=== PATIENT | male | born 1960 | race Caucasian/White ===

== ENCOUNTER 2020-10-14 13:16 | Inpatient (IN) | payer OTHER ==
[~2020-10-14] VITALS: Ht 152.4 cm; Wt 77.5 kg
[2020-10-14 13:30] VITALS: BP 104/43
[2020-10-14 13:55] LABS: HEMATOCRIT 35.5 % (42.0-52.0); HEMOGLOBIN 11.7 gm/dL (14.0-18.0); MCH 31.9 pg (26.0-34.0); MCHC 32.8 g/dL (28.0-37.0); MCV 97.1 fL (80.0-100.0); PLATELET COUNT 130 thou/uL (150-400); RBC 3.66 mil/uL (4.50-6.00); RDW 15.9 % (10.5-14.5); WBC 12.7 thou/uL (4.0-11.0)
[2020-10-14 14:04] LABS: ANION GAP 9 mmol/L (7-16); BUN 36 mg/dL (7-18); CALCIUM 9.1 mg/dL (8.5-10.1); CHLORIDE 100 mmol/L (98-107); CO2 23 mmol/L (21-32); CREATININE 2.9 mg/dL (0.7-1.3); GLUCOSE 142 mg/dL (74-106); POTASSIUM 4.3 mmol/L (3.5-5.1); SODIUM 132 mmol/L (136-145)
[2020-10-14 14:15] LABS: ALBUMIN 3.1 g/dL (3.4-5.0); LIPASE 59 U/L (73-393); SGOT 18 U/L (15-37); SGPT 21 U/L (16-63); TOTAL BILIRUBIN 1.6 mg/dL (0.2-1.0); TOTAL PROTEIN 6.9 g/dL (6.4-8.2); TROPONIN-I <0.06 ng/mL (<0.06)
[2020-10-14 14:20] LABS: ABSOLUTE NEUTROPHILS 11.9 thou/uL (1.4-8.2); TEARDROPS OCCASIONAL
[2020-10-14 14:21] LABS: LARGE PLATELETS RARE; POLYCHROMASIA OCCASIONAL
[2020-10-14] MEDS ORDERED: REQUIP 1 MG TABL1 M1 PO (14:31)
[2020-10-14] MEDS ORDERED: FLOMAX0.4 MG PO (14:31)
[2020-10-14] MEDS ORDERED: OXYBUTYNIN 5 MG5 M2 PO (14:31)
[2020-10-14] MEDS ORDERED: XYOSTED50 MG/0.5 SUBQ (14:32)
[2020-10-14] MEDS ORDERED: LUNESTA3 MG PO (14:32)
[2020-10-14] MEDS ORDERED: CYANOCOBALAM IM (14:33)
[2020-10-14] MEDS ORDERED: XYOSTED50 MG/0.5 IM (14:34)
[2020-10-14 14:53] LABS: BE(vivo) -2.5 mmol/L (-2 to +3); HCO3 20.1 mmol/L (22.0-26.0); PCO2 27.7 mmHg (35.0-45.0); PO2 87.8 mmHg (80.0-100.0); pH 7.479 (7.360-7.450); sO2 97.4 % (92.0-98.0)
--- NOTE | 2020-10-14 15:18 | EKG ---
[address] [place] [address] ELECTROCARDIOGRAM REPORT Name: VALERIE LIMA [id number] Admission: 10/14/20 Attend Phys: Discharge: Date of : 60 Report #: [id number] [facility] ED Test Date: 2020-10-14 Test Time: 13:37:59 Pat Name: VALERIE LIMA Department: Room: Gender: M Printing Plate Clerk: SHANDA : 1960 Requested By: Bailey Christine Order Number: [id number] MD: Maximilian Sauceda Measurements Intervals [place] Rate: 172 P: [place]: QRS: 69 QRSD: 83 T: 34 QT: 263 QTc: 445 Interpretive Statements Atrial fibrillation with rapid V-rate Borderline low voltage, extremity leads No previous ECG available for comparison Electronically Signed On 10-14-2020 15:18:11 CDT by Maximilian Sauceda [email or web address] <ELECTRONICALLY SIGNED> By: Maximilian Sauceda MD, [facility] 10/14/20 1518 1337 1337 Maximilian Sauceda MD, FACC /EPI
[2020-10-14 15:36] LABS: URINE BILIRUBIN NEGATIVE (Negative); URINE BLOOD TRACE (Negative); URINE CLARITY CLEAR; URINE COLOR YELLOW; URINE GLUCOSE-RANDOM* NEGATIVE (Negative); URINE KETONES NEGATIVE (Negative); URINE LEUKOCYTES-REFLEX NEGATIVE (Negative); URINE NITRITE-REFLEX NEGATIVE (Negative); URINE PROTEIN (DIPSTICK) NEGATIVE (Negative); URINE SPECIFIC GRAVITY <= 1.005 (1.005-1.035); URINE UROBILINOGEN 0.2 E.U./dl (0.2-1.0)
[2020-10-14 17:51] VITALS: BP 104/53
[2020-10-14 20:28] VITALS: BP 115/58
[2020-10-15 00:09] VITALS: BP 106/61
[2020-10-15 04:24] VITALS: BP 102/54
[2020-10-15 05:22] LABS: ABSOLUTE NEUTROPHILS 8.7 thou/uL (1.4-8.2); BASOPHILS 0.2 % (0.0-2.0); HEMATOCRIT 33.5 % (42.0-52.0); HEMOGLOBIN 10.8 gm/dL (14.0-18.0); LYMPHOCYTES 2.6 % (24.0-44.0); MCH 32.7 pg (26.0-34.0); MCHC 32.3 g/dL (28.0-37.0); MCV 101.4 fL (80.0-100.0); MONOCYTES 2.9 % (1.0-8.0); PLATELET COUNT 108 thou/uL (150-400); POLYS 94.3 % (36.0-66.0); RDW 16.1 % (10.5-14.5); WBC 9.2 thou/uL (4.0-11.0)
[2020-10-15 05:25] LABS: CALCIUM 8.2 mg/dL (8.5-10.1); CREATININE 2.1 mg/dL (0.7-1.3); POTASSIUM 4.4 mmol/L (3.5-5.1)
--- NOTE | 2020-10-15 07:06 | EKG ---
[address] [address] ELECTROCARDIOGRAM REPORT Name: VALERIE LIMA Room #: 216-P ADM IN M.R.#: [id number] Admission: 10/14/20 Attend Phys: Félix Gonzalez MD Discharge: Date of : 60 Report #: [id number] [facility] ED Test Date: 2020-10-14 Test Time: 13:47:26 Pat Name: VALERIE LIMA Department: Room: 216 Gender: M Pediatric Clinical Dietician: SHANDA : 1960 Requested By: Félix Gonzalez Order Number: [id number] MD: Maximilian Sauceda Measurements Intervals [place] Rate: 88 P: 47 DC: 152 QRS: 7 QRSD: 72 T: -8 QT: 356 QTc: 431 Interpretive Statements Sinus rhythm Probable left atrial enlargement Inferior infarct, age indeterminate Compared to ECG 10/14/2020 13:37:59 Myocardial infarct finding now present Atrial fibrillation no longer present Electronically Signed On 10-15-2020 7:06:01 CDT by Maximilian Sauceda [email or web address] <ELECTRONICALLY SIGNED> By: Maximilian Sauceda MD, [facility] 10/15/20705 46 46 Maximilian Sauceda MD, [facility] /EPI
[2020-10-15 07:45] VITALS: BP 114/59
--- NOTE | 2020-10-15 09:17 | 2DMMODE ---
[facility] [place] [address] 2 D/M-MODE ECHOCARDIOGRAM Name: VALERIE LIMA Room #: 216-P ADM IN M.R.#: [id number] Admission: 10/14/20 Attend Phys: Félix Gonzalez MD Discharge: Date of : 60 Report #: [id number] THIS REPORT FOR: cc: Ruben Mckee Alan Z. DO Park, Jin S. MD ~ APPROVED REPORT Study performed: 10/15/2020 07:35:39 EXAM: Comprehensive 2D, Doppler, and color-flow Echocardiogram Patient Location: Bedside Room #: 216 Status: routine BSA: 1.74 HR: 100 bpm BP: 102/54 mmHg Rhythm: Atrial Fibrillation Other Information Study Quality: Adequate Technically limited study due to Straining due to kindney stones. Indications Atrial Fibrillation 2D Dimensions RVDd: 36.36 mm IVSd: 9.29 (7-11mm) LVOT Diam: 20.79 (18-24mm) LVDd: 52.90 mm PWd: 10.02 (7-11mm) LVDs: 28.25 (25-40mm) Left Atrium: 36.76 (27-40mm) Aortic Root: 30.90 mm Volumes Left Atrial Volume (Systole) Single Plane 4CH: 46.18 mL Single Plane 2CH: 85.68 mL LA ESV Index: 40.00 mL/m2 Aortic Valve AoV Peak Robin.: 1.42 m/s AO Peak Gr.: 8.07 mmHg LVOT Max P.57 mmHg [facility] [address] [place] [address] 2 D/M-MODE ECHOCARDIOGRAM Name: VALERIE LIMA Room #: 216-P ADM IN .R.#: [id number] Admission: 10/14/20 Attend Phys: Félix Gonzalez MD Discharge: Date of : 60 Report #: [id number] LVOT Max V: 1.18 m/s FROYLAN Vmax: 2.82 cm2 Pulmonary Valve PV Peak Robin.: 0.96 m/s PV Peak Gr.: 3.72 mmHg Tricuspid Valve TR Peak Robin.: 2.02 m/s RAP Estimate: 10.00 mmHg TR Peak Gr.: 16.31 mmHg PA Pressure: 26.00 mmHg Left Ventricle The left ventricle is normal size. There is normal LV segmental wall motion. There is normal left ventricular wall thickness. The left ventricular systolic function is normal. LVEF is 55%. This study is not technically sufficient to allow evaluation of the LV diastolic function due to atrial fibrillation. Right Ventricle The right ventricle is normal size. The right ventricular systolic function is normal. Atria Left atrium is mildly dilated. The right atrium size is normal. Aortic Valve The aortic valve is normal in structure. No aortic regurgitation is present. There is no aortic valvular stenosis. Mitral Valve The mitral valve is normal in structure. Mild mitral regurgitation. No evidence of mitral valve stenosis. Tricuspid Valve The tricuspid valve is normal in structure. Trace tricuspid regurgitation. Estimated PAP is 25-30mmHg. Pulmonic Valve Pulmonic valve is not well visualized. There is no pulmonic valvular regurgitation. Great Vessels The aortic root is normal in size. Ascending aorta is not well visualized. IVC is dilated and partially collapses with inspiration. [facility] [address] [place] [address] 2 D/M-MODE ECHOCARDIOGRAM Name: VALERIE LIMA Room #: 216-P [facility] IN ..#: [id number] Admission: 10/14/20 Attend Phys: Félix Gonzalez MD Discharge: Date of : 60 Report #: [id number] Pericardium There is no pericardial effusion. <Conclusion> The left ventricle is normal size. There is normal left ventricular wall thickness. The left ventricular systolic function is normal. The right ventricle is normal size. Left atrium is mildly dilated. The aortic valve is normal in structure. Mild mitral regurgitation. Trace tricuspid regurgitation. Estimated PAP is 25-30mmHg. <ELECTRONICALLY SIGNED> By: Perry Way MD 10/15/[address] MD /INF
--- NOTE | 2020-10-15 11:00 | NUR ---
in am, afib with rvr up to 130's intermittently. Cardiology V BELT BUILDER and Drum Sander Setter present, digoxin and metoprolol xl administered per order. cardizem increased to 15 mg/hr with rate eventually controlled. additionally pt having pain that he was describing as his urinary stent "has dislodged and is starting to come out". administered dilaudid for discomfort/pain with significant improvement with discomfort down to level 4/10. he stated, "the pain pills I had just don't work for me. I had the same medication when I had dental work, it didn't work then and it doesn't work now. the iv pain med worked".
[2020-10-15 12:05] VITALS: BP 100/59
--- NOTE | 2020-10-15 15:39 | NUR ---
ADV. DIR. CONSULT [id number] WAS COMPLETED BY THIS BREWERY CELLAR WORKER. PT. APPOINTED 1 PERSON. COPY PLACED IN CHART.
[2020-10-15 16:15] VITALS: BP 104/63
--- NOTE | 2020-10-15 16:57 | NUR ---
Chart reviewed and case discussed with the care team. Pt admited with afib/lt kidney issues/sepsis. He was working and indep prior to admission and lives with his . He has health insurance through his employer and his pcp is Dr. Ruben Mckee. He is on a cardizem gtt, o2 2lnc, ivf/iv atb. Spiritual care completed an AD/DPOA document with his today. No cm interventions for dc planning anticipated at this time. Will follow along should dc needs arise.
--- NOTE | 2020-10-15 17:56 | NUR ---
resting intermittently this afternoon. no additional pain med needed at this time.
[2020-10-15 20:15] VITALS: BP 101/61
--- NOTE | 2020-10-16 02:39 | NUR ---
wearing the cpap tonight. he got up and had a large BM this am. denies pain that would nessicitate medication. continues on the cardizem gtt for the new onset afib for rate control. careplan reviewed.
[2020-10-16 03:52] LABS: HEMATOCRIT 32.5 % (42.0-52.0); HEMOGLOBIN 10.7 gm/dL (14.0-18.0); MCH 32.2 pg (26.0-34.0); MCV 97.8 fL (80.0-100.0); RBC 3.32 mil/uL (4.50-6.00); WBC 7.4 thou/uL (4.0-11.0)
[2020-10-16 03:59] LABS: CREATININE 1.3 mg/dL (0.7-1.3); POTASSIUM 4.2 mmol/L (3.5-5.1)
[2020-10-16 04:00] VITALS: BP 139/68
[2020-10-16 07:55] VITALS: BP 100/74
--- NOTE | 2020-10-16 09:30 | NUR ---
ASSUMMED CARE OF THIS PATIENT AT 0700 FROM THE NIGHT NURSE, BARON QUISPE. PAIN ISSUE ADDRESSED WITH RELIEF. PATIENT UP TO THE RESTROOM FOR BM AND HEART RATE UP TO 160, AFIB WITH ACTIVITY. VENTRICULAR RESPONSE IN THE 90'S ONCE BACK IN BED AND RESTING. WILL CONTINUE TO MONITOR.
[2020-10-16 11:30] VITALS: BP 115/71
[2020-10-16 15:45] VITALS: BP 122/56
--- NOTE | 2020-10-16 18:08 | NUR ---
PATIENT IS PROGRESSING TOWARDS OUTCOME GOALS. UP TO SHOWER WITH HEART RATE STABLE IN THE 90'S, REMAINS IN A FIB. CARDIZEM DRIP WEANED OFF. BLOOD CULTURES REDRAWN AND VANCOMYCIN ADDED. DR ALCALA IN TO SEE PATIENT
[2020-10-16 20:14] VITALS: BP 121/88
[2020-10-17 03:28] LABS: HEMATOCRIT 37.4 % (42.0-52.0); HEMOGLOBIN 11.8 gm/dL (14.0-18.0); MCH 30.9 pg (26.0-34.0); MCHC 31.5 g/dL (28.0-37.0); MCV 98.2 fL (80.0-100.0); RBC 3.81 mil/uL (4.50-6.00); WBC 5.8 thou/uL (4.0-11.0)
[2020-10-17 03:39] LABS: CALCIUM 8.2 mg/dL (8.5-10.1); CREATININE 1.3 mg/dL (0.7-1.3); POTASSIUM 4.1 mmol/L (3.5-5.1)
[2020-10-17 04:30] VITALS: BP 130/78
[2020-10-17 04:45] VITALS: BP 130/70
--- NOTE | 2020-10-17 05:26 | HC ---
[facility] [place] [address] CONSULTATION Name: VALERIE LIMA Room #: 216-P ADM IN M.R.#: [id number] Admission: 10/14/20 Attend Phys: Félix Gonzalez MD Discharge: Date of : 60 Report #: [id number] THIS REPORT FOR: cc: Ruben Mckee Alan Z. DO Barry, Joseph W. MD ~ DOC #: [id number] Jesus Alberto Barrett MD DATE OF SERVICE: 10/16/2020 INFECTIOUS DISEASE CONSULTATION ATTENDING PHYSICIAN: Dr. Gonzalez. REASON FOR EVALUATION: Staphylococcus aureus septicemia, also has obstructive uropathy. HISTORY OF PRESENT ILLNESS: Chart reviewed, patient examined. The patient is a 60-year-old with history of prostate cancer who developed illness over the course of last several days, had mid abdominal pain that was complicated by loss of appetite and some mild dyspnea as well. He was evaluated by his primary care on the day of admission. Apparently he was diagnosed with UTI. I do not have the available records, presumably a urinalysis, as he presented through the emergency room. Chest x-ray was otherwise unremarkable. Influenza antigen, coronavirus testing were negative. Lactic acid 1.8. Did have elevated creatinine of 2.9, repeat was 1.3. CT abdomen and pelvis showed obstructive uropathy with 6 mm calculus, distal left ureter with marked left-sided hydronephrosis. He did undergo operative evaluation and stent placement. At the time of admission, blood cultures were collected now with 2/2 growth of Staph aureus. Clinically, has improved, overall significantly less pain and discomfort. Denies any pulmonary-related complaints. Appetite is improved. He has not had recorded temperature elevations, had experienced some atrial tachydysrhythmias, those are better controlled, otherwise the pulse still around 100. He is lucid. ALLERGIES: None known. MEDICATIONS: Include metoprolol, rivaroxaban, ropinirole, aspirin, trazodone, diltiazem, Zosyn, hydromorphone, one-time dose of vancomycin. PAST MEDICAL HISTORY: As described above, prostate cancer, restless leg syndrome. PAST SURGICAL HISTORY: Previous hernia repair and appendectomy as an . SOCIAL HISTORY: Nonsmoker, no ethanol, no illicit drug use. [address] [address] CONSULTATION Name: VALERIE LIMA Room #: 216-P [facility] IN M.R.#: [id number] Admission: 10/14/20 Attend Phys: Félix Gonzalez MD Discharge: Date of : 60 Report #: [id number] FAMILY HISTORY: Noncontributory. REVIEW OF SYSTEMS: Otherwise, unremarkable 10-point review of systems. PHYSICAL EXAMINATION: GENERAL: He is alert, cooperative, appropriate, mild distress. VITAL SIGNS: Temperature 98.6, pulse 98, respirations 18, blood pressure is 122/56. SKIN: Warm, dry, no rashes. HEENT: Normocephalic. Extraocular muscles intact. NECK: Supple. He is not requiring supplemental oxygen at this point. LUNGS: Otherwise clear breath sounds. HEART: Borderline tachycardic, irregular. I do not appreciate a murmur. ABDOMEN: Somewhat tender in the right side and flank to palpation. EXTREMITIES: There is no overt peritoneal sign. GENITOURINARY AND RECTAL: Deferred. LABORATORY DATA: Blood cultures described above Staphylococcus aureus. Urine culture, no growth thus far. Electrolytes: Sodium 139, potassium 4.2, chloride 108, bicarbonate 24, anion gap of 7, BUN and creatinine 25 and 1.3, glucose of 138. Estimated GFR of 56. CBC: White count of 7.4, H and H 10.7, hematocrit 32.5, platelets of 134. Echo showed no valvular vegetations. This was transthoracic. CT abdomen and pelvis as described above. A lower extremity venous Dopplers, no evidence of DVT. CT of the chest apparently has some underlying lung disease, nothing acute. No masses. ASSESSMENT: 1. Staphylococcus aureus septicemia of unclear etiology. 2. Obstructive uropathy with evidence of complicated genitourinary tract infection, which is how he presented clinically. 3. Prostate cancer. PLAN: We will continue combination therapy at this point including vancomycin, pending susceptibility results of the Staphylococcus aureus. Blood cultures have been repeated. We will await those results, see how he does clinically. He may need to have a transesophageal echo. At this point, I see no evidence of distal site of focal pyogenic infection. We will add incentive spirometry. MD JOSE ANGEL Castle/QUITA [address] [address] CONSULTATION Name: VALERIE LIMA Room #: 216-P ADM IN M.R.#: [id number] Admission: 10/14/20 Attend Phys: Félix Gonzalez MD Discharge: Date of : 60 Report #: [id number] <ELECTRONICALLY SIGNED> By: Jesus Alberto Barrett MD 10/17/20 0526 1546 0202 Jesus Alberto Barrett MD /nt
[2020-10-17 11:20] VITALS: BP 88/56
[2020-10-17 15:08] VITALS: BP 100/76
[2020-10-17 19:52] VITALS: BP 117/67
--- NOTE | 2020-10-18 04:25 | NUR ---
PT IS ALERT AND ORIENTED X4. LUNGS ARE CLEAR ON ROOM AIR. AFIB ON THE ENGINE HOSTLER. BEDREST. CHANGED SHEETS LAST NIGHT AND HE CLEANED UP A BIT AT BEDTIME AND SLEEPING PILL GIVEN FOR SLEEP PER NURSING. VOIDS PER URINAL. IN ISOLATION FOR MRSA OF URINE. DENIES ANY PAIN ISSUES. CALL LIGHT WITHIN REACH IF NEEDS ASISSTANCE PER NURSING
[2020-10-18 04:59] VITALS: BP 117/83
[2020-10-18 07:45] VITALS: BP 113/84
--- NOTE | 2020-10-18 11:20 | NUR ---
ASSUMED PATIENT CARE AT 0700. PATIENT IN AFIB WITH RATE 130-160. DR. CANO NOTIFIED, INCREASED PO METOPROLOL. AT 0800 PATIENT HAD [address] BE[address] RUN OF [address]. [address] CANO NOTIFIED AND PO AMIO ORDERED.
[2020-10-18 11:35] VITALS: BP 95/53
[2020-10-18 16:00] VITALS: BP 92/70
[2020-10-18 19:49] VITALS: BP 142/80
[2020-10-19] VITALS (9 sets, daily range): BP systolic 92–132; BP diastolic 57–71
--- NOTE | 2020-10-19 07:46 | NUR ---
DENIES CHEST PAIN ON ASSESSMENT.UP WITH STANDBY ASSIST TO THE BATHROOM.BM X 1.DARK RED TINGED URINE OUTPUT NOTED, ADMINISTRATIVE SUPPORT TECHNICIAN IS AWARE.MONITOR SHOWS AFIB.POC CONTINUED.
--- NOTE | 2020-10-19 10:31 | EKG ---
[address] [address] ELECTROCARDIOGRAM REPORT Name: VALERIE LIMA Room #: 216-P ADM IN M.R.#: [id number] Admission: 10/14/20 Attend Phys: Félix Gonzalez MD Discharge: Date of : 60 Report #: [id number] [facility] Test Date: 2020-10-18 Test Time: 18:37:54 Pat Name: VALERIE LIMA Department: Room: 216 P Gender: M Hospital Educator: UNKNOWN : 1960 Requested By: Félix Gonzalez Order Number: [id number] MD: Maximilian Sauceda Measurements Intervals [place] Rate: 86 P: [place]: QRS: 62 QRSD: 96 T: -39 QT: 369 QTc: 442 Interpretive Statements Atrial fibrillation Nonspecific T abnormalities, inferior leads Borderline prolonged QT interval Artifact in lead(s) I,III,aVR,aVL Compared to ECG 10/14/2020 13:47:26 T-wave abnormality now present Sinus rhythm no longer present Myocardial infarct finding no longer present Electronically Signed On 10-19-2020 10:31:18 CDT by Maximilian Sauceda [email or web address] <ELECTRONICALLY SIGNED> By: Maximilian Sauceda MD, [facility] 10/19/20 1031 1837 1837 Maximilian Sauceda MD, [facility] /EPI
[2020-10-19 12:20] LABS: CALCIUM 8.3 mg/dL (8.5-10.1); CREATININE 1.3 mg/dL (0.7-1.3); POTASSIUM 3.9 mmol/L (3.5-5.1)
--- NOTE | 2020-10-19 17:00 | NUR ---
PT CARE ASSUMED AT 0700. ASSESSMENTS CHARTED. MEDICATIONS CHARTED. RAC IV, RAC IV. ATRIAL FIB/ATRIAL FLUTTER. CPAP AT NOC. MRSA ISOLATION. NPO AFTER 0000. UP AD JOSÉ MIGUEL. TRANSESOPHAGEAL ECHO CONSENT SIGNED.
[2020-10-20 04:11] VITALS: BP 111/70
[2020-10-20 05:52] LABS: HEMATOCRIT 34.7 % (42.0-52.0); HEMOGLOBIN 11.2 gm/dL (14.0-18.0); MCH 31.3 pg (26.0-34.0); MCHC 32.4 g/dL (28.0-37.0); MCV 96.5 fL (80.0-100.0); RBC 3.59 mil/uL (4.50-6.00); RDW 16.6 % (10.5-14.5); WBC 7.7 thou/uL (4.0-11.0)
[2020-10-20 05:56] LABS: CREATININE 1.2 mg/dL (0.7-1.3); POTASSIUM 3.8 mmol/L (3.5-5.1)
--- NOTE | 2020-10-20 08:34 | TEE ---
[facility] [place] [address] TRANSESOPHAGEAL ECHOCARDIOGRAM Name: VALERIE LIMA Room #: 216-P ADM IN M.R.#: [id number] Admission: 10/14/20 Attend Phys: Félix Gonzalez MD Discharge: Date of : 60 Report #: [id number] THIS REPORT FOR: cc: Ruben Mckee Alan Z. DO Santiago, Patrick MD [facility] ~ APPROVED REPORT Study performed: 10/20/2020 08:00:35 EXAM: Transesophageal Echocardiogram Patient Location: Room #: 216 Status: routine BSA: 1.95 HR: 180 bpm BP: 116/74 mmHg Rhythm: Atrial Fibrillation Other Information Study Quality: Adequate Indications Atrial Fibrillation Cardioversion. Procedure After obtaining informed consent, patient underwent transesophageal echo in the [employer]. Type of Sedation : Conscious Sedation Sedation was administered by JOSE ENRIQUE Tellez. Sedation start time: 804 Case end Time: 811 Sedation was achieved intravenously with: Versed (6) Fentanyl (100) Transesophageal probe was inserted and advanced into esophagus without difficulty by Maximilian Sauceda MD. The ROB was performed without complications. Synchronized Cardioversion attempted: Successful Synchronized Cardioversion acheived with 120 Joules after 1 attempt(s). Rhythm following Synchronized Cardioversion: Normal Sinus Rhythm Throughout the procedure, the blood pressure, pulse oximetry, cardiac rhythm, and rate were monitored. The patient tolerated the procedure without adverse effects. Recovery [facility] [place] [address] TRANSESOPHAGEAL ECHOCARDIOGRAM Name: VALERIE LIMA Room #: 216-P ADM IN M.R.#: [id number] Admission: 10/14/20 Attend Phys: Félix Gonzalez MD Discharge: Date of : 60 Report #: [id number] from conscious sedation was uneventful and vital signs were stable. Left Ventricle The left ventricle is normal size. There is normal LV segmental wall motion. There is normal left ventricular wall thickness. Left ventricular systolic function is normal. LVEF is 55%. Right Ventricle The right ventricle is normal size. The right ventricular systolic function is normal. Atria Left atrium is mildly dilated. No thrombus is visualized in the left atrium or appendage. The right atrium size is normal. Aortic Valve The aortic valve was not visualized. Mitral Valve The mitral valve is normal in structure. Moderate mitral regurgitation. Tricuspid Valve Tricuspid valve was not visualized. Pericardium There is no pericardial effusion. <Conclusion> Consent was obtained Timeout performed Esophageal probe was advanced without difficulty. Baseline atrial fibrillation with a rapid ventricular rate as high as 190 bpm Left atrium mildly dilated Left atrial appendage, small no obvious clot detected Ejection fraction of 55% Moderate/central mitral valve insufficiency No pericardial effusion Due to the rapid heart rate patient was successfully cardioverted To sinus rhythm after 120 J in a biphasic mode [facility] [place] [address] TRANSESOPHAGEAL ECHOCARDIOGRAM Name: VALERIE LIMA Room #: 216-P ADM IN M.R.#: [id number] Admission: 10/14/20 Attend Phys: Félix Gonzaelz MD Discharge: Date of : 60 Report #: [id number] Patient tolerated procedure well Twelve-lead ECG pending <ELECTRONICALLY SIGNED> By: Maximilian Sauceda MD, FACC 10/20/2034 3 3 Maximilian Sauceda MD, FACC /INF
--- NOTE | 2020-10-20 08:47 | EKG ---
[address] [place] [address] ELECTROCARDIOGRAM REPORT Name: VALERIE LIMA Room #: 216-P ADM IN M.R.#: [id number] Admission: 10/14/20 Attend Phys: Félix Gonzalez MD Discharge: Date of : 60 Report #: [id number] [facility] Test Date: 2020-10-20 Test Time: 08:33:35 Pat Name: VALERIE LIMA Department: Room: 216 P Gender: M Customer Retention Specialist: PONCE : 1960 Requested By: Maximilian Sauceda Order Number: [id number] MD: Maximilian Sauceda Measurements Intervals [place] Rate: 82 P: 80 MD: 177 QRS: 58 QRSD: 90 T: 29 QT: 361 QTc: 422 Interpretive Statements Sinus rhythm Borderline low voltage, extremity leads Abnormal R-wave progression, late transition Non specific ST-T changes Compared to ECG 10/18/2020 18:37:54 Atrial fibrillation no longer present Electronically Signed On 10-20-2020 8:47:00 CDT by Maximilian Sauceda [email or web address] <ELECTRONICALLY SIGNED> By: Maximilian Sauceda MD, [facility] 10/20/20 0847 2 Maximilian Sauceda MD, [facility] /EPI
[2020-10-20 11:00] VITALS: BP 102/56
[2020-10-20 11:45] VITALS: BP 102/56
[2020-10-20] MEDS ORDERED: PACERONE 200 M200 M1 PO (11:51)
[2020-10-20] MEDS ORDERED: METOPROLOL SUCC50 MG PO (11:51)
[2020-10-20] MEDS ORDERED: XARELTO20 MG PO (11:51)
[2020-10-20] MEDS ORDERED: AMOX TR-K CLV1 EAC4 PO (12:49)
[2020-10-20] MEDS ORDERED: LINEZOLID600 MG PO (12:49)
--- NOTE | 2020-10-20 13:57 | NUR ---
PT CARE ASSUMED AT 0700. ASSESSMENTS CHARTED. MEDICATIONS CHARTED. RFA IV. SINUS RHYTHM. CPAP AT NOC W/ 3LPM. DK AZAEL URINE. PT WENT FOR A TRANSESOPHAGEAL ECHO/CARDIOVERSION AT 0745, RETURNED AT 0920, SUCCESSFULLY CONVERTED FROM AFIB TO SINUS RHYTHM. LVEF 55%. EKG PERFORMED DURING PROCEDURE. PT DISCHARGED TO HOME. DISCHARGE PAPERWORK SIGNED. TELEMETRY D/C'D. IV D/C'D.
[2020-10-20 14:02] VITALS: BP 111/70
--- NOTE | 2020-10-20 14:48 | NUR ---
patient weaned off oxygen.Spoke with patient independent with adls anticipate no dc needs at dc.
== END 2020-10-20 14:34 | disposition home or self-care (01) | DRG 853 ==
LOC: ER 13:16 → 2N 16:16 → EROBS 16:16 → 2N 20:06
PROVIDERS: Nurse Practitioner; Physician Assistant; Specialist; ADMIT Hospitalist; ATTEND Hospitalist
PROC: BT1F1ZZ Fluoroscopy of Left Kidney, Ureter and Bladder using Low Osmolar Contrast (ICD-10-PCS; principal; 2020-10-14)
PROC: 0T778DZ Dilation of Left Ureter with Intraluminal Device, Via Natural or Artificial Opening Endoscopic (ICD-10-PCS; principal; 2020-10-14)
PROC: 5A09357 Assistance with Respiratory Ventilation, Less than 24 Consecutive Hours, Continuous Positive Airway Pressure (ICD-10-PCS; 2020-10-15)
PROC: 5A09457 Assistance with Respiratory Ventilation, 24-96 Consecutive Hours, Continuous Positive Airway Pressure (ICD-10-PCS; 2020-10-16)
PROC: 5A09357 Assistance with Respiratory Ventilation, Less than 24 Consecutive Hours, Continuous Positive Airway Pressure (ICD-10-PCS; 2020-10-20)
PROC: B24BZZ4 Ultrasonography of Heart with Aorta, Transesophageal (ICD-10-PCS; 2020-10-20)
DX: A41.02 Sepsis due to Methicillin resistant Staphylococcus aureus (principal); N17.0 Acute kidney failure with tubular necrosis; N13.2 Hydronephrosis with renal and ureteral calculous obstruction; I48.20 Chronic atrial fibrillation, unspecified; G25.81 Restless legs syndrome; C61 Malignant neoplasm of prostate; I08.1 Rheumatic disorders of both mitral and tricuspid valves; Z20.822 Contact with and (suspected) exposure to COVID-19; Z79.899 Other long term (current) drug therapy; Z90.49 Acquired absence of other specified parts of digestive tract; Z87.891 Personal history of nicotine dependence
CPT/HCPCS: 10081; 50010; 50101; 50751; 51620; 51767; 56815; 57160; 58565; 62110; 62900; 70005

== ENCOUNTER 2020-11-05 10:31 | Emergency (ER) | payer OTHER ==
[~2020-11-05] VITALS: Ht 177.8 cm; Wt 83.5 kg
--- NOTE | ~2020-11-05 | EMS ---
[address] [address] EMS Patient Care Report Name: VALERIE LIMA Room #: REG BEN Dinero#: [id number] Admission: 11/05/20 Attend Phys: Discharge: Date of : 60 Report #: [id number] THIS REPORT FOR: //name// Report Transmitted: 11/05/2020 11:52 EMS Care Summary [facility] Incident [id number] @ 11/05/2020 09:44 Incident Location [address] [place] [address] Patient SARAH LIMA Male, 60 Years 1960 Patient Address [address] [place] [address] Patient History Atrial Fibrillation,Kidney Stone, Patient Allergies No known allergies, Patient Medications Amoxicillin, Tamsulosin, Xarelto, Chief Complaint light headed and dizzy Disposition Transported No Lights/[place] Dispatch Reason Sick Person Transported To [facility] Narrative Arrive to find the pt sitting in a chair in a warehouse being assessed by LFD. Pt reports that he stood up from his chair and got very dizzy and light headed and knew he had to sit down. Pt says 911 was then called. Pt says that on Monday he had a surgery to remove kidney stones and they kept him over night [address] [address] EMS Patient Care Report Name: VALERIE LIMA Room #: REG BEN Dinero#: [id number] Admission: 11/05/20 Attend Phys: Discharge: Date of : 60 Report #: [id number] due to a low hemoglobin count and he also reports that he had a blood transfusion yesterday. Pt says that while sitting he is feeling much more normal. VS, ECG and 12 lead done by LFD. Orthostatic BP taken and pt reports that as soon as he stood up he is light headed and dizzy. Pt denies any loss of consc., SOB, CP or any other problems. Pt is helped to a stair chair and taken to the ambulance and then secured to the cot. VS and ECG monitored, IV started and fluid bolus given. Biocom to [employer] with no orders and tx without incident. Pt is saying he feels better. Pt taken to ER room 8 and report to RN at bedside and care transferred. Initial Vitals @10:16P: 79,BP: 108/70,SpO2: 98, @PTAP: 106,R: 25,SpO2: 97,AK Suspected: false @PTAP: 90,R: 18,BP: 94/65,Pain: 0/10,GCS: 15,SpO2: 99,Revised Trauma: 12, @PTAP: 84,R: 18,BP: 107/58,Pain: 0/10,GCS: 15,Glucose: 147,SpO2: 97,Revised Trauma: 12,AK Suspected: false @10:23P: 104,R: 18,BP: 105/66,Pain: 0/10,GCS: 15,SpO2: 96,Revised Trauma: 12,AK Suspected: false @PTAP: 86,R: 26,BP: 117/76,Pain: 0/10,GCS: 15,Temp: 98.2F,SpO2: 96,Revised Trauma: 12, Assessments @10:24MENTAL:Person Oriented,Time Oriented,Place Oriented,Event Oriented,SKIN:HEENT:Head/Face: No Abnormalities,LUNG SOUNDS:General: No Abnormalities,ABDOMEN:General: No Abnormalities,PELVIS//GI:EXTREMITIES:Left Arm: No Abnormalities,Right Arm: No Abnormalities,Left Leg: No Abnormalities,Right Leg: No Abnormalities,PULSE:NEURO:No Abnormalities, Impression Orthostatic Hypotension Procedures @MFF06-Epqa ECGResponse: UnchangedSucceeded@10:17Saline Lock 0cc (18 ga) Site: Antecubital-LeftResponse: UnchangedFailed@10:18Saline Lock 400cc (20 ga) Site: Forearm-RightResponse: ImprovedSucceeded Timeline STEAMFITTER,12-Lead ECG,Response: UnchangedSucceeded, STEAMFITTER,BP: / M,PULSE: 106,RR: 25 R,SPO2: 97 Ox,ETCO2: ,BG: ,PAIN: ,GCS: , STEAMFITTER,BP: 94/65 M,PULSE: 90,RR: 18 R,SPO2: 99 Ox,ETCO2: ,BG: ,PAIN: 0,GCS: 15, STEAMFITTER,BP: 107/58 M,PULSE: 84,RR: 18 R,SPO2: 97 Ox,ETCO2: ,B,PAIN: 0,GCS: 15, STEAMFITTER,BP: 117/76 M,PULSE: 86,RR: 26 R,SPO2: 96 Ox,ETCO2: ,BG: ,PAIN: 0,GCS: 15, 09:42,Call Received 09:42,Psap Call [address] [address] EMS Patient Care Report Name: VALERIE LIMA Room #: MELLO Salcido.#: [id number] Admission: 11/05/20 Attend Phys: Discharge: Date of : 60 Report #: [id number] 09:44,Dispatched 09:44,En Route 09:55,On Scene 09:57,At Patient 10:12,Depart Scene 10:16,BP: 108/70 M,PULSE: 79,RR: R,SPO2: 98 Ox,ETCO2: ,BG: ,PAIN: ,GCS: , 10:17,Saline Lock 0cc 18 ga Site: Antecubital-Left,Response: UnchangedFailed, 10:18,Saline Lock 400cc 20 ga Site: Forearm-Right,Response: ImprovedSucceeded, 10:23,BP: 105/66 M,PULSE: 104,RR: 18 R,SPO2: 96 Ox,ETCO2: ,BG: ,PAIN: 0,GCS: 15, 10:26,At Destination 10:45,Call Closed Disclaimer v1.1 Copyright 2020 [employer] This EMS Care Summary contains data elements from the applicable legal record (which may be displayed differently). It is designed to provide pertinent information for the following purposes: continuity of care, clinical quality, and state data reporting. The complete legal record is available to ED staff and administrators of the receiving hospital in [facility]'s Patient Tracker. All data is provided "as is."
[~2020-11-05 10:31] MED LIST: AMOX TR-K CLV1 EAC4 PO; CYANOCOBALAM IM; FLOMAX0.4 MG PO; LINEZOLID600 MG PO; LUNESTA3 MG PO; METOPROLOL SUCC50 MG PO; OXYBUTYNIN 5 MG5 M2 PO; PACERONE 200 M200 M1 PO; REQUIP 1 MG TABL1 M1 PO; XARELTO20 MG PO; XYOSTED50 MG/0.5 IM; XYOSTED50 MG/0.5 SUBQ
[2020-11-05 10:57] LABS: ABSOLUTE NEUTROPHILS 3.6 thou/uL (1.4-8.2); BASOPHILS 0.7 % (0.0-2.0); EOSINOPHILS 1.1 % (0.0-3.0); HEMATOCRIT 26.1 % (42.0-52.0); HEMOGLOBIN 8.7 gm/dL (14.0-18.0); LYMPHOCYTES 12.6 % (24.0-44.0); MCH 30.3 pg (26.0-34.0); MCHC 33.2 g/dL (28.0-37.0); MCV 91.3 fL (80.0-100.0); MONOCYTES 7.3 % (1.0-8.0); PLATELET COUNT 117 thou/uL (150-400); POLYS 78.3 % (36.0-66.0); RBC 2.86 mil/uL (4.50-6.00); RDW 16.5 % (10.5-14.5); WBC 4.6 thou/uL (4.0-11.0)
[2020-11-05 11:05] LABS: ANION GAP 10 mmol/L (7-16); BUN 16 mg/dL (7-18); CALCIUM 8.3 mg/dL (8.5-10.1); CHLORIDE 106 mmol/L (98-107); CO2 25 mmol/L (21-32); CREATININE 1.3 mg/dL (0.7-1.3); GLUCOSE 107 mg/dL (74-106); POTASSIUM 3.5 mmol/L (3.5-5.1); SODIUM 141 mmol/L (136-145)
[2020-11-05 11:16] LABS: ALBUMIN 2.6 g/dL (3.4-5.0); SGOT 8 U/L (15-37); SGPT 22 U/L (30-65); TOTAL BILIRUBIN 0.5 mg/dL (0.2-1.0); TROPONIN-I <0.06 ng/mL (<0.06)
[2020-11-05 11:43] LABS: URINE BILIRUBIN NEGATIVE (Negative); URINE BLOOD 3+ (Negative); URINE CLARITY CLOUDY; URINE COLOR RED; URINE GLUCOSE-RANDOM* NEGATIVE (Negative); URINE KETONES NEGATIVE (Negative); URINE NITRITE-REFLEX NEGATIVE (Negative); URINE PROTEIN (DIPSTICK) 2+ (Negative); URINE UROBILINOGEN 0.2 E.U./dl (0.2-1.0)
[2020-11-05 11:44] LABS: URINE LEUKOCYTES-REFLEX 1+ (Negative)
[2020-11-05 11:48] LABS: CASTS None Seen /LPF (None Seen); CRYSTALS None Seen /LPF (None Seen); SQUAMOUS None Seen /LPF (0-3); URINE RBC >20 Many /HPF (NONE SEEN); URINE WBC-REFLEX 6-15 Few /HPF (0-5)
[2020-11-05 11:49] LABS: BACTERIA-REFLEX 1-9 Few /HPF (None Seen)
--- NOTE | 2020-11-05 12:27 | EKG ---
[place] [address] [facility] [place] [address] ELECTROCARDIOGRAM REPORT Name: VALERIE LIMA [facility] [id number] Admission: 11/05/20 Attend Phys: Discharge: Date of : 60 Report #: [id number] [facility] ED Test Date: 2020-11-05 Test Time: 10:40:31 Pat Name: VALERIE LIMA Department: Room: Gender: M Funeral Service Practitioner/Embalmer: ROBBIE : 1960 Requested By: Angela Mancia Order Number: [id number] MD: Maximilian Sauceda Measurements Intervals [place] Rate: 80 P: 64 [place]: 179 QRS: 61 QRSD: 86 T: 59 QT: 381 QTc: 440 Interpretive Statements Sinus rhythm Multiple premature complexes, vent & supraven Compared to ECG 10/20/2020 08:33:35 Myocardial infarct finding now present ST (T wave) deviation no longer present Electronically Signed On 11-05-2020 12:27:20 CDT by Maximilian Sauceda [email or web address] <ELECTRONICALLY SIGNED> By: Maximilian Sauceda MD, [facility] 11/05/20 1227 D: 05/0 1040 Maximilian Sauceda MD, [facility]ACC /EPI
[2020-11-05] MEDS ORDERED: KEFLEX125 MG/5 M PO (13:27)
[2020-11-05 14:25] VITALS: BP 112/66
== END 2020-11-05 14:25 | disposition home or self-care (01) ==
LOC: ER 10:31
PROVIDERS: Student in an Organized Health Care Education/Training Program
DX: N39.0 Urinary tract infection, site not specified (principal); D64.9 Anemia, unspecified; R31.9 Hematuria, unspecified; R42 Dizziness and giddiness; G25.81 Restless legs syndrome; Z79.899 Other long term (current) drug therapy; Z85.46 Personal history of malignant neoplasm of prostate; Z90.49 Acquired absence of other specified parts of digestive tract

== ENCOUNTER → 2020-12-03 | Outpatient (CLI) | payer OTHER ==
[~2020-12-03] MED LIST changes: +KEFLEX125 MG/5 M PO
== END ==
LOC: SJCVCIMAG 08:32
PROVIDERS: ATTEND Internal Medicine Cardiovascular Disease
DX: R00.0 Tachycardia, unspecified (principal); I49.1 Atrial premature depolarization; I48.91 Unspecified atrial fibrillation; R06.00 Dyspnea, unspecified; Z79.899 Other long term (current) drug therapy; Z87.891 Personal history of nicotine dependence